=== PATIENT | male | born 2000 | race Caucasian/White ===

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

== ENCOUNTER → 2019-01-02 | Emergency (ER) | payer SELFPAY ==
[~2019-01-02] VITALS: Ht 193 cm; Wt 68.0 kg
[~2019-01-02] MED LIST changes: +AMOXICILLIN500 M2 PO; +ANAPROX DS550 MG PO; +AVPAK AZITHROM250 MG PO; +CEFADROXIL500 M1 PO; +PREDNISONE20 M1 PO; +PROAIR HFA8.5 GM INH
[2019-01-02 12:42] VITALS: BP 126/61
== END ==
LOC: ED 12:41
DX: J20.9 Acute bronchitis, unspecified (principal); F17.290 Nicotine dependence, other tobacco product, uncomplicated; Z88.8 Allergy status to other drugs, medicaments and biological substances; Z79.899 Other long term (current) drug therapy; Z79.2 Long term (current) use of antibiotics

== ENCOUNTER 2019-02-10 21:22 | Emergency (ER) | payer SELFPAY ==
[~2019-02-10] VITALS: Ht 193 cm; Wt 68.0 kg
--- NOTE | ~2019-02-10 | EKG ---
[place], [place] ELECTROCARDIOGRAM REPORT NAME: BETH WEST UNIT #: [id number] ROOM: DOCTOR: EPIPHANY DRAFT REPORT BIRTHDATE: [birth year] [facility] Test Date: 2019-02-10 Test Time: 22:04:56 Pat Name: BETH WEST Department: ED Room: 3 Gender: M Division Chair: Bravo Mejia : 2000 Requested By: LUIS ROCHE Order Number: [id number] Reading MD: Nadeem Castro MD Measurements Intervals [place] Rate: 63 P: 85 ND: 176 QRS: 67 QRSD: 98 T: 78 QT: 378 QTc: 387 Interpretive Statements Sinus rhythm Left atrial enlargement RSR' in V1 or V2, probably normal variant ST elev, probable normal early repol pattern Electronically Signed On 02-11-2019 7:55:02 PDT by Nadeem Castro MD CM:EKGRPT:ELECTROCARDIOGRAM REPORT [id number] LUIS CARDONA DRAFT REPORT LUIS ROCHE DO
[~2019-02-10 21:22] MED LIST changes: -AMOXICILLIN500 M2 PO
[2019-02-10 21:27] VITALS: BP 116/60
[2019-02-10 22:10] LABS: BILIRUBIN NEGATIVE (NEGATIVE); BLOOD NEGATIVE (NEGATIVE); CLARITY CLEAR (CLEAR); COLOR YELLOW (YELLOW); GLUCOSE NEGATIVE (NEGATIVE); KETONE NEGATIVE (NEGATIVE); LEUKO ESTERASE NEGATIVE (NEGATIVE); NITRITE NEGATIVE (NEGATIVE); PH 6.5 (5.0-9.0); SPECIFIC GRAVITY 1.015 (1.005-1.030); UROBILINOGEN 0.2 E.U./dl (0.2-1.0)
[2019-02-10 22:10] LABS: BASO % 0.3 % (0.0-1.0); EOS # 0.1 10*3/uL (0.0-0.4); HEMATOCRIT 43.5 % (42.0-52.0); HEMOGLOBIN 14.9 g/dl (14.0-18.0); LYMPH # 2.2 10*3/uL (1.3-4.4); LYMPH % 22.9 % (27.0-41.0); MEAN CELL VOLUME 90.1 fl (80.0-94.0); MEAN CORPUSCULAR HGB 30.8 pg (27.0-31.0); MEAN CORPUSCULAR HGB CONC 34.3 g/dl (33.0-37.0); MONO # 0.6 10*3/uL (0.1-1.0); NEUT # 6.5 10*3/uL (2.3-7.9); NEUT % 69.6 % (47.0-73.0); PLATELET COUNT AUTOMATED 245 10*3/uL (130-400); RED BLOOD COUNT 4.83 10*6/uL (4.50-5.90); WHITE BLOOD COUNT 9.4 10*3/uL (4.8-10.8)
[2019-02-10 22:19] LABS: URINE AMPHETAMINES < 1000 (1000ng/ml); URINE BARBITURATES < 200 (200ng/ml); URINE BENZODIAZEPINES < 200 (200ng/ml); URINE CANNABINOIDS (THC) > 50 (50ng/ml); URINE COCAINE < 300 (300ng/ml); URINE METHADONE < 300 (300ng/ml); URINE OPIATES < 300 (300ng/ml)
[2019-02-10 22:22] LABS: URINE PHENCYCLIDINE < 25 (25ng/ml)
[2019-02-10 22:24] LABS: ALBUMIN 4.2 gm/dl (3.1-4.5); ALKALINE PHOSPHATASE 90 U/L (45-117); BUN 11 mg/dl (7-24); CHLORIDE 108 mmol/L (98-107); CREATININE 0.97 mg/dL (0.70-1.30); POTASSIUM 3.9 mmol/L (3.5-5.1); SGOT/AST 19 IU/L (3-35); SGPT/ALT 21 U/L (12-78); SODIUM 144 mmol/L (136-145); TOTAL PROTEIN 7.7 gm/dL (6.4-8.2)
[2019-02-10 22:25] LABS: ACETAMINOPHEN (TYLENOL) < 5.0 ug/ml (10-30); ETHYL ALCOHOL < 3.0 mg/dl (<3)
[2019-02-10 22:34] LABS: WBC 0-2 wbc/hpf (0-5)
[2019-03-18] MEDS ORDERED: AMOXICILLIN500 M2 PO (07:21)
== END 2019-02-11 09:54 | disposition home or self-care (01) ==
LOC: ED 21:22
PROVIDERS: Emergency Medicine
DX: F43.20 Adjustment disorder, unspecified (principal); F32.9 Major depressive disorder, single episode, unspecified; Z88.8 Allergy status to other drugs, medicaments and biological substances

== ENCOUNTER 2020-05-08 09:21 | Emergency (ER) | payer OTHER ==
[~2020-05-08] VITALS: Ht 195.5 cm; Wt 61.2 kg
[~2020-05-08 09:21] MED LIST changes: +AMOXICILLIN500 M2 PO
[2020-05-08 09:30] VITALS: BP 132/83
[2020-05-08 09:59] LABS: BASO # 0.1 10*3/uL (0.0-0.1); BASO % 0.7 % (0.0-1.0); EOS # 0.1 10*3/uL (0.0-0.4); EOS % 1.6 % (1.0-4.0); HEMATOCRIT 41.9 % (42.0-52.0); LYMPH # 2.1 10*3/uL (1.3-4.4); LYMPH % 28.2 % (27.0-41.0); MEAN CELL VOLUME 88.4 fl (80.0-94.0); MEAN CORPUSCULAR HGB 30.2 pg (27.0-31.0); MEAN CORPUSCULAR HGB CONC 34.1 g/dl (33.0-37.0); MONO # 0.6 10*3/uL (0.1-1.0); MONO % 7.9 % (3.0-9.0); NEUT # 4.5 10*3/uL (2.3-7.9); NEUT % 61.3 % (47.0-73.0); PLATELET COUNT AUTOMATED 217 10*3/uL (130-400); RED BLOOD COUNT 4.74 10*6/uL (4.50-5.90); WHITE BLOOD COUNT 7.4 10*3/uL (4.8-10.8)
[2020-05-08 10:02] LABS: URINE AMPHETAMINES < 1000 (1000ng/ml); URINE BARBITURATES < 200 (200ng/ml); URINE BENZODIAZEPINES < 200 (200ng/ml); URINE CANNABINOIDS (THC) > 50 (50ng/ml); URINE COCAINE < 300 (300ng/ml); URINE METHADONE < 300 (300ng/ml); URINE OPIATES < 300 (300ng/ml)
[2020-05-08 10:03] LABS: URINE PHENCYCLIDINE < 25 (25ng/ml)
[2020-05-08 10:12] LABS: BILIRUBIN NEGATIVE (NEGATIVE); CLARITY CLEAR (CLEAR); COLOR YELLOW (YELLOW); GLUCOSE NEGATIVE (NEGATIVE); KETONE 1+ (NEGATIVE)
[2020-05-08 10:13] LABS: BLOOD NEGATIVE (NEGATIVE); LEUKO ESTERASE NEGATIVE (NEGATIVE); NITRITE NEGATIVE (NEGATIVE); RBC 0-2 rbc/hpf (0-2); UROBILINOGEN 0.2 E.U./dl (0.2-1.0); WBC 0-2 wbc/hpf (0-5)
[2020-05-08 10:16] LABS: ALBUMIN 4.3 gm/dl (3.1-4.5); ALKALINE PHOSPHATASE 72 U/L (45-117); BUN 15 mg/dl (7-24); CHLORIDE 108 mmol/L (98-107); CREATININE 0.83 mg/dL (0.70-1.30); ETHYL ALCOHOL < 3.0 mg/dl (<3); POTASSIUM 3.8 mmol/L (3.5-5.1); SGOT/AST 13 IU/L (3-35); SGPT/ALT 17 U/L (12-78); SODIUM 140 mmol/L (136-145); TOTAL PROTEIN 7.6 gm/dL (6.4-8.2)
== END 2020-05-08 11:22 | disposition home or self-care (01) ==
LOC: ED 09:21
PROVIDERS: Emergency Medicine
DX: F43.21 Adjustment disorder with depressed mood (principal); Z88.8 Allergy status to other drugs, medicaments and biological substances

== ENCOUNTER 2020-07-28 16:13 | Emergency (ER) | payer OTHER ==
[~2020-07-28] VITALS: Ht 193 cm; Wt 68.0 kg
[2020-07-28 16:23] VITALS: BP 115/62
[2020-07-28] MEDS ORDERED: AUGMENTIN 875-875 MG PO (20:18)
== END 2020-07-28 20:23 | disposition home or self-care (01) ==
LOC: ED 16:13
DX: J40 Bronchitis, not specified as acute or chronic (principal); F17.200 Nicotine dependence, unspecified, uncomplicated; Z88.8 Allergy status to other drugs, medicaments and biological substances

== ENCOUNTER 2021-05-04 14:01 | Emergency (ER) | payer OTHER ==
[~2021-05-04] VITALS: Ht 193 cm; Wt 63.5 kg
[~2021-05-04 14:01] MED LIST changes: +AUGMENTIN 875-875 MG PO
[2021-05-04 14:04] VITALS: BP 106/67
[2021-05-04] MEDS ORDERED: PROVENTIL HFA6.7 GM INH (18:06)
[2021-05-04] MEDS ORDERED: IBUPROFEN600 MG PO (18:06)
== END 2021-05-04 18:32 | disposition home or self-care (01) ==
LOC: ED 14:01
DX: J40 Bronchitis, not specified as acute or chronic (principal); F17.200 Nicotine dependence, unspecified, uncomplicated; Z88.8 Allergy status to other drugs, medicaments and biological substances

== ENCOUNTER 2021-07-30 19:06 | Emergency (ER) | payer OTHER ==
[~2021-07-30] VITALS: Ht 193 cm; Wt 65.8 kg
[~2021-07-30 19:06] MED LIST changes: +IBUPROFEN600 MG PO; +PROVENTIL HFA6.7 GM INH
[2021-07-30 19:07] VITALS: BP 110/59
[2021-07-30 19:20] LABS: HEMATOCRIT 40.7 % (42.0-52.0); MEAN CELL VOLUME 89.1 fl (80.0-94.0); MEAN CORPUSCULAR HGB 30.6 pg (27.0-31.0); MEAN CORPUSCULAR HGB CONC 34.4 g/dl (33.0-37.0); MEAN PLATELET VOLUME 9.8 fl (9.6-12.3); PLATELET COUNT AUTOMATED 213 10*3/uL (130-400); RED BLOOD COUNT 4.57 10*6/uL (4.50-5.90); RED CELL DISTRI WIDTH 13.1 % (0-14.5); WHITE BLOOD COUNT 18.5 10*3/uL (4.8-10.8)
[2021-07-30 19:34] LABS: ALBUMIN 2.7 gm/dl (3.1-4.5); ALKALINE PHOSPHATASE 50 U/L (45-117); BUN 21 mg/dl (7-24); CHLORIDE 104 mmol/L (98-107); CREATININE 0.88 mg/dL (0.70-1.30); POTASSIUM 3.9 mmol/L (3.5-5.1); SGOT/AST 8 IU/L (3-35); SGPT/ALT 26 U/L (12-78); SODIUM 140 mmol/L (136-145); TOTAL PROTEIN 5.8 gm/dL (6.4-8.2)
[2021-07-30 20:11] LABS: PLATELET SUFFICIENCY NORMAL (NORMAL); TOTAL CELLS COUNTED 100 #CELLS
[2021-07-30 20:12] LABS: OVALOCYTES FEW
== END 2021-07-30 21:12 | disposition home or self-care (01) ==
LOC: ED 19:06
PROVIDERS: Internal Medicine
DX: U07.1 COVID-19 (principal); D72.829 Elevated white blood cell count, unspecified; Z88.8 Allergy status to other drugs, medicaments and biological substances

== ENCOUNTER 2023-09-15 19:11 | Emergency (ER) | payer OTHER ==
[~2023-09-15] VITALS: Ht 193 cm; Wt 70.3 kg
[2023-09-15] MEDS ORDERED: AMOX-CLAV 875-1 EACH PO (20:16)
== END 2023-09-15 20:39 | disposition home or self-care (01) ==
LOC: ED 19:11
DX: K08.89 Other specified disorders of teeth and supporting structures (principal); Z88.8 Allergy status to other drugs, medicaments and biological substances; F17.290 Nicotine dependence, other tobacco product, uncomplicated

== ENCOUNTER 2023-12-25 19:22 | Emergency (ER) | payer OTHER ==
[~2023-12-25] VITALS: Ht 193 cm; Wt 68.0 kg
[~2023-12-25 19:22] MED LIST changes: +AMOX-CLAV 875-1 EACH PO
[2023-12-25 19:49] VITALS: BP 100/73
[2023-12-25] MEDS ORDERED: Motrin,Rufen800 MG PO (20:56)
[2023-12-25] MEDS ORDERED: Ketorolac Tromethamine 60 MG/2 ML VIAL IM ONE (21:00)
== END 2023-12-25 20:59 | disposition home or self-care (01) ==
LOC: ED 19:22
DX: S60.221A Contusion of right hand, initial encounter (principal); Z88.8 Allergy status to other drugs, medicaments and biological substances; W22.8XXA Striking against or struck by other objects, initial encounter; Y93.89 Activity, other specified; Y92.89 Other specified places as the place of occurrence of the external cause; Y99.8 Other external cause status

== ENCOUNTER 2024-02-23 23:59 | Emergency (ER) | payer OTHER ==
[~2024-02-23] VITALS: Ht 1950 cm; Wt 65.8 kg
[~2024-02-23 23:59] MED LIST changes: +Motrin,Rufen800 MG PO
[2024-02-24 00:11] VITALS: BP 132/76
[2024-02-24] MEDS ORDERED: AMOXICILLIN500 M2 PO (00:49)
[2024-02-24] MEDS ORDERED: AMOXICILLIN 500 MG CAP PO ONE (00:50)
== END 2024-02-24 00:53 | disposition home or self-care (01) ==
LOC: ED 23:59
DX: K04.7 Periapical abscess without sinus (principal); K08.89 Other specified disorders of teeth and supporting structures; Z88.8 Allergy status to other drugs, medicaments and biological substances

== ENCOUNTER 2025-02-05 01:02 | Emergency (ER) | payer OTHER ==
[~2025-02-05] VITALS: Ht 193 cm; Wt 70.3 kg
[2025-02-05 01:08] VITALS: BP 124/57
== END 2025-02-05 01:13 | disposition home or self-care (01) ==
LOC: ED 01:02
DX: R51.9 Headache, unspecified (principal); Z88.8 Allergy status to other drugs, medicaments and biological substances; Z79.899 Other long term (current) drug therapy

== ENCOUNTER 2025-03-02 18:45 | Emergency (ER) | payer OTHER ==
[~2025-03-02] VITALS: Ht 185.4 cm; Wt 68.0 kg
[2025-03-02 19:05] VITALS: BP 159/100
== END 2025-03-02 20:08 | disposition home or self-care (01) ==
LOC: ED 18:45
DX: Z04.89 Encounter for examination and observation for other specified reasons (principal); Z88.8 Allergy status to other drugs, medicaments and biological substances

== ENCOUNTER 2025-05-08 15:20 | Emergency (ER) | payer BC, OTHER ==
[2025-05-08 15:36] VITALS: BP 121/71
[2025-05-08 15:43] LABS: BASO # 0.0 10*3/uL (0.0-0.1); BASO % 0.5 % (0.0-1.0); EOS # 0.1 10*3/uL (0.0-0.4); EOS % 1.5 % (1.0-4.0); MEAN CELL VOLUME 88.5 fl (80.0-94.0); MEAN CORPUSCULAR HGB 29.5 pg (27.0-31.0); MEAN PLATELET VOLUME 9.1 fl (9.6-12.3); MONO # 0.4 10*3/uL (0.1-1.0); MONO % 6.9 % (3.0-9.0); NEUT # 3.8 10*3/uL (2.3-7.9); NEUT % 64.9 % (47.0-73.0); NUCLEATED RED BLOOD CELL 0.0 % (0.0-0.0); NUCLEATED RED BLOOD CELL 0.0 10*3/uL (0.0-0.0); PLATELET COUNT AUTOMATED 237 10*3/uL (130-400); RED CELL DISTRI WIDTH 12.1 % (0-14.5)
[2025-05-08 16:05] LABS: BUN 15 mg/dl (9-23); SGPT/ALT 13 U/L (5-49)
[2025-05-08 16:06] LABS: ETHYL ALCOHOL < 3.0 mg/dl (<3)
[2025-05-08 16:22] LABS: BILIRUBIN Negative (Negative); BLOOD Negative (Negative); CLARITY Clear (Clear); COLOR Yellow (Yellow); KETONE 1+ (Negative); LEUKO ESTERASE Negative (Negative); NITRITE Negative (Negative); PH 5.5 (4.5-8.0); SPECIFIC GRAVITY 1.015 (1.001-1.030); UROBILINOGEN 1.0 E.U./dl (0.0-1.0)
[2025-05-08 16:28] LABS: URINE AMPHETAMINES Negative (1000ng/ml); URINE BARBITURATES Negative (200ng/ml); URINE BENZODIAZEPINES Negative (200ng/ml); URINE CANNABINOIDS (THC) Positive (50ng/ml); URINE COCAINE Negative (300ng/ml); URINE METHADONE Negative (300ng/ml); URINE OPIATES Negative (300ng/ml); URINE PHENCYCLIDINE Negative (25ng/ml)
[2025-05-08 16:31] LABS: MUCOUS 2+
[2025-05-08] MEDS ORDERED: Water, Sterile 10 ML VIAL ONE (21:29)
[2025-05-12 09:07] LABS: HSV-2 DNA Negative (Negative)
== END 2025-05-08 23:30 ==
LOC: ED 15:20
PROVIDERS: Internal Medicine
DX: T42.4X2A Poisoning by benzodiazepines, intentional self-harm, initial encounter (principal); S60.221A Contusion of right hand, initial encounter; F31.9 Bipolar disorder, unspecified; Z88.8 Allergy status to other drugs, medicaments and biological substances; X58.XXXA Exposure to other specified factors, initial encounter; Y93.89 Activity, other specified; Y92.89 Other specified places as the place of occurrence of the external cause; Y99.8 Other external cause status

== ENCOUNTER 2025-06-16 10:48 | Emergency (ER) | payer BC, OTHER ==
[~2025-06-16] VITALS: Ht 193 cm; Wt 68.0 kg
[2025-06-16 10:59] VITALS: BP 123/99
== END 2025-06-16 13:05 | disposition left against medical advice (07) ==
LOC: ED 10:48
DX: S69.91XA Unspecified injury of right wrist, hand and finger(s), initial encounter (principal); W22.8XXA Striking against or struck by other objects, initial encounter; F31.9 Bipolar disorder, unspecified; Z86.16 Personal history of COVID-19; Z88.8 Allergy status to other drugs, medicaments and biological substances; Y93.89 Activity, other specified; Y92.89 Other specified places as the place of occurrence of the external cause; Y99.8 Other external cause status

== ENCOUNTER 2025-09-23 10:25 | Emergency (ER) | payer BC, OTHER ==
[~2025-09-23] VITALS: Ht 193 cm; Wt 65.3 kg
[2025-09-23 10:42] VITALS: BP 116/75
[2025-09-23] MEDS ORDERED: Ondansetron Hydrochloride 4 MG TAB PO ONE (11:40)
[2025-09-23] MEDS ORDERED: Ondansetron4 MG PO (13:30)
== END 2025-09-23 13:39 | disposition home or self-care (01) ==
LOC: ED 10:25
DX: B34.9 Viral infection, unspecified (principal); Z88.8 Allergy status to other drugs, medicaments and biological substances